=== PATIENT | male | born 1985 | race Caucasian/White ===

== ENCOUNTER 2017-04-04 11:33 | Emergency (ER) | payer SELFPAY ==
[~2017-04-04] VITALS: Ht 190.5 cm; Wt 136.1 kg
[~2017-04-04 11:33] MED LIST: ATIVAN1 MG ORAL; CEPHALEXIN500 MG ORAL; IBUPROFEN600 MG ORAL
--- NOTE | 2017-04-04 12:11 | Emergency Room Report ---
History of Present Illness General Chief Complaint: Lower Extremity Injury Source: Patient, Medical Record Present Illness HPI 31-year-old male presents to the emergency department complaining of right ankle pain and swelling since yesterday. Patient states he was moving mattresses and furniture yesterday he does not recall any specific trauma or injury. Patient reports 10 out of 10 pain he took half of a Garrison and for Advil this a.m. with minimal relief at 8 AM. Patient reports pain is exacerbated with weight-bearing. Denies previous injury to the extremity denies erythema denies increased temperature palpation denies lesions to the skin. Denies numbness tingling or loss of sensation or gross motor movements of the extremities, incontinence of bowel or bladder. Denies CP, Palpitations, LOC , AMS, dizziness, Changes in Vision, Sensation, paresthesias, or a sudden severe headache. Allergies: Coded Allergies: No Known Allergies (Unverified , 08/10/16) Patient History Past Medical History: see triage record Past Surgical History: none Pertinent Family History: none Immunizations: UTD Reviewed Nursing Documentation: PMH: Agreed, PSxH: Agreed Nursing Documentation-PMH Hx Hypertension: Yes Review of Systems All Other Systems: negative except mentioned in HPI Physical Exam Vital Signs Date Time Temp Pulse Resp B/P Pulse Ox O2 Delivery O2 Flow Rate FiO2 04/04/17 11:53 97.9 73 16 144/89 97 Room Air Sp02 EP Interpretation: reviewed, normal General Appearance: no apparent distress, alert, GCS 15, non-toxic Head: normocephalic, atraumatic Eyes: bilateral eye PERRL, bilateral eye normal inspection ENT: hearing grossly normal, normal pharynx, no angioedema, normal voice Neck: full range of motion, supple/symm/no masses Respiratory: chest non-tender, lungs clear, normal breath sounds, speaking full sentences Cardiovascular #1: regular rate, rhythm, no edema, normal capillary refill Cardiovascular #2: 2+ dorsalis pedis (R) Musculoskeletal: back normal, gait/station normal, normal range of motion, no calf tenderness, tender - moderate lateral TTP and swelling to the right ankle, and mild TTP to the posterior achilles. no obvious defomity other than swelling noted, no erythema, no increased temperature to palpation, pt. has FROM with pain, good capilarry refill. Neurologic: alert, oriented x3, responsive, motor strength/tone normal, sensory intact, speech normal Psychiatric: judgement/insight normal, memory normal, mood/affect normal Skin: normal color, no rash, warm/dry, well hydrated Medical Decision Making PA Attestation Dr. Loving is my supervising Physician whom patient management has been discussed with. Diagnostic Impression: Primary Impression: Right ankle sprain Qualified Codes: S93.431A - Sprain of tibiofibular ligament of right ankle, initial encounter ER Course 31-year-old male presents to the emergency department complaining of right ankle pain and swelling since yesterday. Patient states he was moving mattresses and furniture yesterday he does not recall any specific trauma or injury. Patient reports 10 out of 10 pain he took half of a Garrison and for Advil this a.m. with minimal relief at 8 AM. Patient reports pain is exacerbated with weight-bearing. Denies previous injury to the extremity denies erythema denies increased temperature palpation denies lesions to the skin. Ddx considered but are not limited to Fracture, dislocation, contusion, Sprain/ Strain/Spasm, Epidural abscess, Neoplastic mets. Vital signs: are WNL, pt. is afebrile H&PE are most consistent with ankle sprain will r/o additional musculoskeletal injury with xray imaging. ORDERS: - X-ray Right ankle 3 views - negative for fx, Dislocation, positive for some soft tissue swelling- per preliminary read in ED by Dr. Loving ED INTERVENTIONS: - 5mg Garrison PO - Ebenezer wrap applied by nuclear plant instrument technician. Pt. remains neurovascularly intact. - Pt declines crutches. DISCHARGE: At this time pt. is stable for d/c to home. Will provide printed patient care instructions, and any necessary prescriptions. Care plan and follow up instructions have been discussed with the patient prior to discharge. Last Vital Signs Date Time Temp Pulse Resp B/P Pulse Ox O2 Delivery O2 Flow Rate FiO2 04/04/17 11:53 97.9 73 16 144/89 97 Room Air Disposition: HOME, SELF-CARE Condition: Stable Scripts Acetaminophen* (TYLENOL EXTRA STRENGTH*) 500 Mg Tablet 500 MG ORAL Q6H, #20 TAB 0 Refills Prov: Bessie López P.ABritta 04/04/17 Ibuprofen* (MOTRIN*) 800 Mg Tablet 800 MG ORAL THREE TIMES A DAY for 7 Days, #30 TAB 0 Refills Prov: Bessie López 04/04/17 Patient Instructions: Ankle Sprain Additional Instructions: Take medications as directed. Follow up with PCP in 3-5 days Return sooner to ED if new symptoms occur, or current symptoms become worse. - Please note that this Emergency Department Report was dictated using [employer] analyst technology software, occasionally this can lead to erroneous entry secondary to interpretation by the dictation equipment. Bessie López April 04, 2017 12:11
[2017-04-04] MEDS ORDERED: Norco 5mg/325mg tab ORAL ONE (12:15)
[2017-04-04] MEDS ORDERED: TYLENOL EXTRA500 MG ORAL (13:09)
[2017-04-04] MEDS ORDERED: IBUPROFEN800 MG ORAL (13:09)
[2017-04-04 13:20] VITALS: BP 120/80
--- NOTE | 2017-04-05 12:02 | Diagnostic Imaging Report ---
Indication: Pain Comparison: None Findings: 3 views of the right ankle obtained. There is soft tissue swelling noted the area of the ankle. No definite fracture or malalignment identified. Impression: Soft tissue swelling
== END 2017-04-04 13:20 | disposition home or self-care (01) ==
LOC: EMR 12:35
DX: S93.431A Sprain of tibiofibular ligament of right ankle, initial encounter (principal); X58.XXXA Exposure to other specified factors, initial encounter; Y93.9 Activity, unspecified; Y92.9 Unspecified place or not applicable; I10 Essential (primary) hypertension
CPT/HCPCS: 29540; 99284